=== PATIENT | female | born 1935 | race Caucasian/White ===

== ENCOUNTER → 2016-09-26 | Outpatient (CLI) | payer MEDICARE ==
[~2016-09-26] MED LIST: COUM2.5T PO; FLUTI44I INH; MEDR4PAK3 PO; OMEP20TA PO; PRAV20 PO; RANI300T PO; ULTR50TA PO; VENTAER INH
--- NOTE | 2016-10-05 10:53 | RSPPFT ---
DATE OF PROCEDURE: 09/26/16 COMMENTS: Spirometry with FVC of 1.9 predicted 2.4, FEV1 of 1.2 predicted 1.8, FEV1 FVC ratio 57% predicted 81%. Post-bronchodilator FVC increases to 2.1. RV is increased to 2.8 predicted 2.3. DLCO is 43% of predicted. IMPRESSION: On the basis of the above, patient has an obstructive lung defect with a mild response to acutely inhaled bronchodilator. DLCO is decreased.
== END ==
LOC: HRSP 13:16
PROVIDERS: ATTEND Internal Medicine Pulmonary Disease
DX: J44.9 Chronic obstructive pulmonary disease, unspecified (principal)
CPT/HCPCS: 94060; 94620; 94726; 94729

== ENCOUNTER 2017-04-06 16:28 | Emergency (ER) | payer MEDICARE ==
[~2017-04-06] VITALS: Ht 160 cm; Wt 63.5 kg
[2017-04-06 16:29] VITALS: BP 127/58; PULSE 86; RESP 18; TEMP 98.8; O2SAT 97
[2017-04-06 17:29] LABS: AUTOMATED NEUTROPHIL # 5.9 TH/MM3 (1.8-7.7); BASOPHIL % 0.5 % (0.0-2.0); EOSINOPHIL # 0.1 TH/MM3 (0-0.4); EOSINOPHIL % 0.9 % (0.0-4.0); HEMATOCRIT 40.3 % (35.0-46.0); LYMPH % 15.6 % (9.0-44.0); LYMPHOCYTE # 1.2 TH/MM3 (1.0-4.8); MEAN CELL VOLUME 92.5 FL (80.0-100.0); MEAN CORPUSCULAR HEMOGLOBIN 32.2 PG (27.0-34.0); MEAN CORPUSCULAR HGB CONC 34.8 % (32.0-36.0); MEAN PLATELET VOLUME 7.3 FL (7.0-11.0); MONO % 9.3 % (0.0-8.0); MONOCYTE # 0.7 TH/MM3 (0-0.9); NEUT % 73.7 % (16.0-70.0); PLATELET COUNT 220 TH/MM3 (150-450); RED BLOOD COUNT 4.36 MIL/MM3 (4.00-5.30); RED CELL DISTRIBUTION WIDTH 13.5 % (11.6-17.2); WHITE BLOOD COUNT 7.9 TH/MM3 (4.0-11.0)
--- NOTE | 2017-04-06 17:35 | RADRPT ---
EXAM DATE/TIME: 04/06/2017 17:05 [place] COMPARISON: No previous studies available for comparison. INDICATIONS : Chest pain. MEDICAL HISTORY : Chronic obstructive pulmonary disease. Emphysema. Afib. Diabetes. SURGICAL HISTORY : Right carotid endarterectomy. ENCOUNTER: Initial ACUITY: 1 week PAIN SCORE: 2/10 LOCATION: Left chest FINDINGS: PA and lateral views of the chest was obtained and demonstrate a focal oval area of consolidative opa city projected along the right minor fissure best seen on the PA study. This measures up to approxima tely 3.2 x 1.9 cm in diameter. There is associated thickening of the lateral minor fissure which appe ars retracted cephalad. The left lung is clear. The heart and mediastinal structures are within don l limits. There is no definite effusion. CONCLUSION: Focal oval consolidative opacity projected over the right upper lobe. The differentia l diagnosis includes pneumonia. A true pulmonary mass is less likely. Short term followup is recommen ded after treatment. Mark Lehman MD on April 06, 2017 at 17:30 Board Certified Radiologist. This report was verified electronically.
[2017-04-06 17:45] LABS: INTERNATIONAL NORMALIZED RATIO 1.5 RATIO; PROTHROMBIN TIME - PATIENT 15.1 SEC (9.8-11.6)
[2017-04-06 17:47] LABS: BICARBONATE 30.3 MEQ/L (21.0-32.0); BLOOD UREA NITROGEN 23 MG/DL (7-18); CALCIUM 8.8 MG/DL (8.5-10.1); CHLORIDE 99 MEQ/L (98-107); CREATININE 1.12 MG/DL (0.50-1.00); GLOMERULAR FILTRATION RATE 47 ML/MIN (>89); GLUCOSE,RANDOM 75 MG/DL (74-106); MAGNESIUM 2.3 MG/DL (1.5-2.5); SODIUM (NA) 136 MEQ/L (136-145)
[2017-04-06 17:51] LABS: TROPONIN I LESS THAN 0.02 NG/ML (0.02-0.05)
--- NOTE | 2017-04-06 18:16 | PD ---
HPI Chief Complaint: Chest Pain Time Seen by Provider: 18:15 Travel History International Travel<30 days: No Contact w/Intl Traveler<30days: No Traveled to known affect area: No History of Present Illness HPI 81-year-old female patient of Dr. Santizo the gasket maker, presents the emergency department with chest pain over the past couple of days. Patient is scheduled for a catheterization with Dr. Santizo next Monday. She was seen by Dr. Santizo nurse in his office, and recommended to come here for getting "checked out." Patient now feels she is improved. She denies fever, chills, significant shortness of breath, nausea, vomiting, or abdominal pain. Labs previous he ordered in triage showed no acute process. EKG is stable. Chest x- ray was ordered as well. She has multiple allergies. Please see list. PFSH Past Medical History Hx Anticoagulant Therapy: Yes (warfarin) Heart Rhythm Problems: Yes ("IRREGULAR RHYTHMS") Cancer: No Cardiovascular Problems: Yes (RIGHT C.E.A.) High Cholesterol: Yes COPD: Yes Diabetes: No (pre diabetic) Gastrointestinal Disorders: Yes (gerd) Glaucoma: No Genitourinary: No Hepatitis: No Hiatal Hernia: No Hypertension: Yes Implanted Vascular Access Dvce: No Psychiatric: No Respiratory: No Thyroid Disease: Yes (HYPOTHYROID) Past Surgical History Appendectomy: Yes (AGE 14) Cholecystectomy: Yes (AGE 23) Hysterectomy: Yes (AGE 57) Other Surgery: Yes (RIGHT CAROTID ENDARTECTOMY 2001) Social History Alcohol Use: No Tobacco Use: No (QUIT 1998- FORMER 1PPD X 40 YEARS) Substance Use: No Allergies-Medications (Allergen,Severity, Reaction): Coded Allergies: amoxicillin (Unverified Allergy, Mild, shortness of breath, 11/08/16) diatrizoate meglumine (Unverified Allergy, Mild, hives, 11/08/16) gadobenic acid (Unverified Allergy, Mild, hives, 11/08/16) gadodiamide (Unverified Allergy, Mild, hives, 11/08/16) gadoteridol (Unverified Allergy, Mild, hives, 11/08/16) iodixanol (Unverified Allergy, Mild, hives, 11/08/16) iohexol (Unverified Allergy, Mild, hives, 11/08/16) Reported Meds & Prescriptions Reported Meds & Active Scripts Active Azithromycin 250 Mg Tab 250 Mg PO DIRECTED Take 2 tabs (500 mg) on day 1 then 1 tab daily x 4 days. Reported Coumadin (Warfarin) 5 Mg Tab 5 Mg PO DAILY Coumadin (Warfarin) 2.5 Mg Tab 2.5 Mg PO DAILY Flovent Hfa (Fluticasone Propionate) 44 Mcg/Act Aer 1 Puff INH BID Ventolin Hfa (Albuterol Sulfate) 18 Gm Aero 0 INH UNKNOWN DOSE Ranitidine 300 mg (Ranitidine HCl) 300 Mg Tab 1 Tab PO DAILY Pravastatin Sodium 20 Mg Tab 20 Mg PO DAILY Review of Systems Except as stated in HPI: all other systems reviewed are Neg General / Constitutional: No: Fever, Chills Eyes: No: Visual changes HENT: No: Headaches Cardiovascular: Positive: Chest Pain or Discomfort, No: Palpitations, Irregular Rhythm, Tachycardia Respiratory: Positive: Cough, No: Shortness of Breath, Wheezing, Orthopnea, Night Sweats, Pleuritic Pain Gastrointestinal: No: Abdominal Pain Genitourinary: No: Dysuria Musculoskeletal: No: Pain Skin: No Rash Neurologic: No: Weakness Psychiatric: No: Depression Endocrine: No: Polydipsia Hematologic/Lymphatic: No: Easy Bruising Physical Exam Narrative GENERAL: Patient alert and oriented in no acute distress. SKIN: Warm and dry. Color. Normal turgor. HEAD: Atraumatic. Normocephalic. EYES: Pupils equal and round. No scleral icterus. No injection or drainage. ENT: No nasal bleeding or discharge. Mucous membranes pink and moist. TMs are clear bilaterally. Pharynx is unremarkable. No sinus tenderness. NECK: Trachea midline. No JVD. Supple nontender without pain. CARDIOVASCULAR: Regular rate and rhythm. Murmurs gallops or rubs. RESPIRATORY: No accessory muscle use. Clear to auscultation. Breath sounds equal bilaterally. GASTROINTESTINAL: Abdomen soft, non-tender, nondistended. Hepatic and splenic margins not palpable. MUSCULOSKELETAL: Extremities without clubbing, cyanosis, or edema. No obvious deformities. NEUROLOGICAL: Awake and alert. No obvious cranial nerve deficits. Motor grossly within normal limits. Five out of 5 muscle strength in the arms and legs. Normal speech. PSYCHIATRIC: Appropriate mood and affect; insight and judgment normal. Data Data Last Documented VS Vital Signs Date Time Temp Pulse Resp B/P (MAP) Pulse Ox O2 Delivery O2 Flow Rate FiO2 04/06/17 18:34 96 Room Air 04/06/17 16:29 98.8 86 18 127/58 (81) Orders Orders Electrocardiogram (04/06/17 16:35) Basic Metabolic Panel (Bmp) (04/06/17 16:35) B-Type Natriuretic Peptide (04/06/17 16:35) Ckmb (Isoenzyme) Profile (04/06/17 16:35) Complete Blood Count With Diff (04/06/17 16:35) Magnesium (Mg) (04/06/17 16:35) Prothrombin Time / Inr (Pt) (04/06/17 16:35) Act Partial Throm Time (Ptt) (04/06/17 16:35) Troponin I (04/06/17 16:35) Chest, Pa & Lat (04/06/17 16:35) Labs Laboratory Tests Test 04/06/17 16:48 White Blood Count 7.9 TH/MM3 Red Blood Count 4.36 MIL/MM3 Hemoglobin 14.0 GM/DL Hematocrit 40.3 % Mean Corpuscular Volume 92.5 FL Mean Corpuscular Hemoglobin 32.2 PG Mean Corpuscular Hemoglobin Concent 34.8 % Red Cell Distribution Width 13.5 % Platelet Count 220 TH/MM3 Mean Platelet Volume 7.3 FL Neutrophils (%) (Auto) 73.7 % Lymphocytes (%) (Auto) 15.6 % Monocytes (%) (Auto) 9.3 % Eosinophils (%) (Auto) 0.9 % Basophils (%) (Auto) 0.5 % Neutrophils # (Auto) 5.9 TH/MM3 Lymphocytes # (Auto) 1.2 TH/MM3 Monocytes # (Auto) 0.7 TH/MM3 Eosinophils # (Auto) 0.1 TH/MM3 Basophils # (Auto) 0.0 TH/MM3 CBC Comment DIFF FINAL Differential Comment Prothrombin Time 15.1 SEC Prothromb Time International Ratio 1.5 RATIO Activated Partial Thromboplast Time 31.1 SEC Blood Urea Nitrogen 23 MG/DL Creatinine 1.12 MG/DL Random Glucose 75 MG/DL Calcium Level 8.8 MG/DL Magnesium Level 2.3 MG/DL Sodium Level 136 MEQ/L Potassium Level 3.6 MEQ/L Chloride Level 99 MEQ/L Carbon Dioxide Level 30.3 MEQ/L Anion Gap 7 MEQ/L Estimat Glomerular Filtration Rate 47 ML/MIN Total Creatine Kinase 52 U/L Troponin I LESS THAN 0.02 NG/ML B-Type Natriuretic Peptide 279 PG/ML MDM Medical Decision Making Medical Screen Exam Complete: Yes Emergency Medical Condition: Yes Medical Record Reviewed: Yes Differential Diagnosis Cough. Shortness of breath. Cardiac syndrome. Pneumonia. Influenza. Narrative Course Patient appears medically stable at time of exam. Labs are unremarkable. Chest x-ray shows question of changes, but patient has history of lung cancer treated at [place]. I have no previous x-ray to compare to. EKG is unremarkable as well. Call was placed to Dr. Santizo the patient's gasket maker and the findings are discussed. Patient will be treated empirically with azithromycin Dosepak. Patient is felt stable for discharge with this treatment plan. Patient should return the emergency Department with worsening symptoms as needed. Diagnosis Primary Impression: Cough in adult patient Additional Impression: Bronchitis Referrals: Chevy Santizo MD Patient Instructions: Acute Bronchitis (ED), General Instructions Additional Instructions: Patient appears medically stable at time of exam. Labs are unremarkable. Chest x-ray shows question of changes, but patient has history of lung cancer treated at [place]. I have no previous x-ray to compare to. EKG is unremarkable as well. Call was placed to Dr. Santizo the patient's gasket maker and the findings are discussed. Patient will be treated empirically with azithromycin Dosepak. Patient is felt stable for discharge with this treatment plan. Patient should return the emergency Department with worsening symptoms as needed. Med/Other Pt SpecificInfo: Prescription(s) given Scripts Azithromycin (Azithromycin) 250 Mg Tab 250 MG PO DIRECTED for Infection, #6 TAB 0 Refills Take 2 tabs (500 mg) on day 1 then 1 tab daily x 4 days. Prov: Dale Padron MD 04/06/17 Disposition: 01 DISCHARGE HOME Condition: Stable Mark Cifuentes Apr 06, 2017 18:16
[2017-04-06] MEDS ORDERED: COUM2.5T PO (18:41)
[2017-04-06] MEDS ORDERED: COUM5TAB PO (18:41)
[2017-04-06] MEDS ORDERED: AZIT250T3 PO (18:58)
--- NOTE | 2017-04-07 14:53 | EKG ---
Date Performed: 04/06/2017 Time Performed: 16:42:10 PTAGE: 81 years EKG: ATRIAL FIBRILLATION Now consider INFERIOR MYOCARDIAL INFARCTION - age indeterminate ABNORMA L RHYTHM ECG PREVIOUS TRACING : 09/06/2012 12.37 DOCTOR: Erwin Tinsley Interpretating Date/Time 04/07/2017 14:52:56
== END 2017-04-06 19:30 | disposition home or self-care (01) ==
LOC: NEPC 16:28
DX: J20.9 Acute bronchitis, unspecified (principal); R94.31 Abnormal electrocardiogram [ECG] [EKG]; E03.9 Hypothyroidism, unspecified; I10 Essential (primary) hypertension; E78.00 Pure hypercholesterolemia, unspecified; E11.9 Type 2 diabetes mellitus without complications; I48.91 Unspecified atrial fibrillation; Z87.891 Personal history of nicotine dependence; Z85.118 Personal history of other malignant neoplasm of bronchus and lung
CPT/HCPCS: 71046; 80048; 82550; 83735; 83880; 84484; 85025; 85610; 85730; 93005; 99285

== ENCOUNTER 2017-04-17 06:54 | Day surgery (SDC) | payer MEDICARE ==
[~2017-04-17] VITALS: Ht 160 cm; Wt 62.2 kg
[~2017-04-17 06:54] MED LIST changes: +AZIT250T3 PO; +COUM5TAB PO
[2017-04-17] MEDS ORDERED: IOHEXOL 350 MG/ML 100 ML BTL (for Cath Lab) OTHER ONE (06:55)
[2017-04-17 07:43] VITALS: BP 141/71; PULSE 90; RESP 18; TEMP 97.6; O2SAT 92
[2017-04-17] MEDS ORDERED: NS 1000P @30 MLS/HR (KVO) IV SCH (08:00)
[2017-04-17] MEDS ORDERED: VENTAER INH (08:01)
[2017-04-17] MEDS ORDERED: RANI150T PO (08:01)
[2017-04-17] MEDS ORDERED: UBID200C3 PO (08:01)
[2017-04-17] MEDS ORDERED: POTA10CA PO (08:01)
[2017-04-17] MEDS ORDERED: PRED20 PO (08:01)
[2017-04-17] MEDS ORDERED: CART120C PO (08:01)
[2017-04-17] MEDS ORDERED: PRAV20TA2 PO (08:01)
[2017-04-17] MEDS ORDERED: MAGN500T2 PO (08:01)
[2017-04-17] MEDS ORDERED: VITACAP7 PO (08:01)
[2017-04-17] MEDS ORDERED: FLUTI220I INH (08:01)
[2017-04-17] MEDS ORDERED: FURO40TA PO (08:01)
[2017-04-17] MEDS ORDERED: MIDAZOLAM HCL 2 MG/2 ML VIAL ONE (08:32)
[2017-04-17] MEDS ORDERED: diphenhydrAMINE HCL 50 MG/ML VIAL ONE (08:37)
--- NOTE | 2017-04-17 09:20 | CATHPROC ---
[employer] HIS Report Study Information Study Number Admission Scheduled Start Study Start [id number] Apr 17 2017 6:54AM 04/17/2017 Apr 17 2017 8:07AM [place] [facility] Cardiac Catheterization Admit Source Facility Department Other [facility] - Manager Client Physician and Clinical Staff Initial Chevy Ferrari Drier Operator Head Jo Byrd BSN Recorder Russell Porras,RT(R) Scrub Ermelinda Raymundo,RT(R) Procedures Performed Procedure Location (Site) Vessel Name Angiogram LV LV Ventricle Coronary Angiograms LCA Left Coronary Coronary Angiograms RCA Right Coronary Equipment Time Interactive Multimedia Designer Description Size Mfg Part Number Used/Scraped [id number] 08:50 [employer] SWAN ROSALBA CATHETER FR 7 Used *[id number] TRANSDUCER, TRUWAVE [id number] 08:13 [employer] * Used W/STOCKCOCK *[id number] *[id number] 534-621T *[id number] 534-650S *[id number] 08:13 [employer] PACK, CCL CUSTOM * Used *[id number] 08:13 [email or web address] PACER PEN, SKIN DUAL W/ RULER * Used *[id number] 08:13 [employer] MEDICAL SHEATH, FR6.5 PRELUDE 11CM FR 6.5 038ACT Used *[id number] 08:44 [employer] MEDICAL SHEATH, FR7.5 PRELUDE 11CM FR 7.5 11CM Used [id number] 08:13 [employer] MEDICAL WIRE, 3MMJ .035 180CM 180CM Used *[id number] 08:13 [employer] MANIFOLD, 4 PORT * Used *[id number] 08:13 [employer] OMNIPAQUE, 350 MG, 100ML 100ML [id number] Used 08:48 [employer] OMNIPAQUE, 350 MG, 50ML 50ML [id number] Used [id number] 08:13 [employer] MEDICAL BLANKET,WARM AIR CCL * Used *[id number] History: Risk Factors Family History of Hypertension Dyslipidemia Previous NV Previous Heart Failure Premature CAD Yes Yes No No Yes Prior Valve Prior PCI Prior CABG Surgery No No No Cerebrovascular Peripheral Artery Chronic Lung On Dialysis Diabetes Disease Disease Disease No No Yes Yes No History: Other Current Smoker Method Quit Packs a Day Years Used Pack Years No Cigarettes 19 Years Ago 1 40 40 Labs Hgb (g/dl) Hct (%) WBC (l/cumm) Platelets (thousands) 11.60-17.00 35.00-51.00 4.00-11.00 150.00-450.00 13.7 41.5 8.7 215 Glucose (mg/dl) BUN (mg/dl) Creatinine (mg/dl) BUN:Creatinine (1:x) 74.00-106.00 7.00-18.00 0.50-1.30 10.00-20.00 116 21 1.1 19.1 Na (meq/l) K (meq/l) 136.00-145.00 3.50-5.10 137 4.1 INR (PTT:PT) 0.90-1.10 1.3 CPK-MB (ng/ML) 0.50-3.60 Not Drawn Medication Medication Total Dose (Bolus/Oral) Medication Total Dosage/Unit 1% XYLOCAINE 20 mL BENADRYL 25 mg VERSED 1 mg Medications (Bolus/Oral) Medication Time Given Dosage/Unit Administered By Reason 1% XYLOCAINE 04/17/2017 8:37:58 AM 20 mL Chevy Santizo 20 mL 1% XYLOCAINE given in lab by Chevy Santizo in Right Groin via Subcutaneous. Ordered by Chevy Coleman ms. BENADRYL 04/17/2017 8:38:39 AM 25 mg Jo Byrd 25 mg BENADRYL given in lab by Jo Byrd BSN in Left Antecubital via Peripheral IV. Ordere d by Chevy Santizo. VERSED 04/17/2017 8:47:00 AM 1 mg Oscar Byrdanda 1 mg VERSED given in lab by Jo Byrd BSN in Left Antecubital via Peripheral IV. Ordered b y Chevy Santizo. Medication (Drip) Medication Time Given Dosage/Unit Concentration/Unit Diluent (ml) Solution IV Solutions 04/17/2017 8:27:44 AM 50 mL (IV) 500 NaCl .9 Patient arrived on IV Solutions given by Chevy Santizo in Left Antecubital via Peripheral IV. Pump/ Drip Flow using NaCl .9. Initial Case Assessment Cardiovascular HR Rhythm NIBP Chest Pain 91 A-fib 101/47 0 Edema Present Skin color Skin None Normal Warm Dry Circulatory - Right Pulses Dorsalis Pedis Femoral 3 3 Scale (0,1,2,3,4,d) Circulatory - Left Pulses Dorsalis Pedis Femoral 2 2 Scale (0,1,2,3,4,d) Neurological State Oriented to time-place- Alert Moves all extremities person Respiration - General Respiration Rate SpO2 (%) (B/min) 18 96 Final Case Assessment Cardiovascular HR Rhythm NIBP 96 A-fib 113/72 Edema Present Skin color Skin None Normal Warm Dry Circulatory - Right Pulses Dorsalis Pedis Femoral 3 3 Scale (0,1,2,3,4,d) Circulatory - Left Pulses Dorsalis Pedis Femoral 2 2 Scale (0,1,2,3,4,d) Neurological State Oriented to time-place- Alert Moves all extremities person Respiration - General Respiration Rate SpO2 (%) O2 (lpm) (B/min) 18 97 2 Chronological Log Time Study Chronological Log 8:27:06 Patient arrived via Bed. 8:27:12 Patient Name, D.O.B, / Armband Verified By R.N. 8:27:13 Consent signed by the physician and the patient and verified by the Manager Client staff. 8:27:28 Patient has been NPO for More than 6Hrs. 8:27:29 Skin Breakdown- none per patient 8:27:41 Leanne Prominences Protected 8:27:43 A # 20 IV was noted in the Antecubital (left). Grade = 0 Patient arrived on IV Solutions given by Chevy Santizo in Left Antecubital via Peripheral IV. Pump/Drip Flow using NaCl 8:27:44 .9. 8:27:48 History and physical on the chart or being dictated. Assessment: Initial Case, HR=91 BPM, Rhythm=A-fib, ZBPQ=062/47 mmhg, Chest Pain=0, Edema=None, Color=Normal, Skin = Warm, Dry Right Pulses: North Ped=3, Femoral=3 8:27:49 Left Pulses: North Ped=2, Femoral=2 Neurological: State=Alert, Ox3, HERNANDEZ Respiration: Resp=18 B/min, SpO2=96 % 8:28:00 MD arrived. Vitals capture started with the following parameters, Patient=Adult, Interval=5 min, Initial Pr rvahmo=120 mmHg, 8:29:46 Deflation Rate=5 mmHg, Cuff placed on Left Arm 8:30:30 OA=154 bpm, WULJ=966/47 mmhg, SpO2=96.0 %, Resp=21 B/min, Cooper=2 8:33:45 Bilateral groins prepped with 2% chlorhexidine, and draped after a 3 minute waiting time. 8:35:48 FS=994 bpm, QHER=156/76 mmhg, SpO2=96.0 %, Resp=27 B/min, Cooper=2 Time Out. Correct patient, correct procedure, correct physician, power not loaded with contrast with surgical team 8:36:02 present. Time Out Concurred by MD and individual staff in procedure. 8:36:11 Presedation re-assessment performed by Manager Client RN. 8:36:13 Case Start 8:36:14 Verbal Stimulation=2 Physical Stimulation=2 Airway=2 Respiration=2 TOTAL=8. (0=absent, 1=grace ited, 2=present) 8:37:58 20 mL 1% XYLOCAINE given in lab by Chevy Santizo in Right Groin via Subcutaneous. Ordered by Chevy Santizo. 8:38:12 Reference ECG taken 25 mg BENADRYL given in lab by Jo Byrd BSN in Left Antecubital via Peripheral IV. O rdered by Sukhdev, 8:38:39 Chevy. 8:39:48 Pressure channel 1 zeroed. 8:40:24 XU=252 bpm, ILTU=913/80 mmhg, SpO2=97.0 %, Resp=16 B/min, Cooper=2 8:42:06 Access site was Right Femoral Artery. 8:42:23 A SHEATH, FR6.5 PRELUDE 11CM FR 6.5 was advanced into the Fem Art (right) using the Percutan eous technique. 8:45:25 YP=207 bpm, WQUR=095/84 mmhg, SpO2=96.0 %, Resp=13 B/min, Cooper=2 1 mg VERSED given in lab by Jo Byrd BSN in Left Antecubital via Peripheral IV. Orde red by Sukhdev, 8:47:00 Chevy. 8:47:50 Access site was Right Femoral Vein. A SHEATH, FR7.5 PRELUDE 11CM FR 7.5 11CM was advanced into the Fem Vein (right) using the Percut aneous 8:48:13 technique. 8:48:40 A SWAN ROSALBA CATHETER FR 7 was inserted via Fem Vein (right) 8:50:22 HQ=743 bpm, XDCV=712/72 mmhg, SpO2=90.0 %, Resp=17 B/min, Cooper=2 Recorded Pressure: RA, OD=907, Condition=Condition 1 8:50:24 (Right Atrium) RA 118 Recorded Pressure: RV, LZ=708, Condition=Condition 1 8:51:02 (Right Ventricle) RV 65/1/4 Recorded Pressure: PCW, MU=606, Condition=Condition 1 8:53:11 (Pulmonary Capillary Wedge) PCW 32/31/26 Recorded Pressure: MPA, KX=414, Condition=Condition 1 8:53:26 (Main Pulmonary Artery) MPA 71/27/46 A JL 4.0 INFINITI CATHETER FR 6 was advanced over a wire. OMNIPAQUE, 350 MG, 100ML 100ML was use d for 8:54:38 injections. 8:55:21 SB=619 bpm, DNJG=095/74 mmhg, SpO2=90.0 %, Resp=19 B/min, Cooper=2 Recorded Pressure: Ao, HR=82, Condition=Condition 1 8:56:52 (Aorta) Ao 151/54/89 8:57:09 The LCA was injected and visualized at various angles. OMNIPAQUE, 350 MG, 100ML 100ML used. 9:00:18 HR=89 bpm, TGCH=578/71 mmhg, SpO2=94.0 %, Resp=14 B/min, Cooper=2 9:01:36 Catheter was removed A JR 4.0 INFINITI CATHETER FR 6 was advanced over a wire. OMNIPAQUE, 350 MG, 100ML 100ML was use d for 9:03:05 injections. 9:03:21 The RCA was injected and visualized at various angles. OMNIPAQUE, 350 MG, 100ML 100ML used. 9:04:38 Catheter was removed A PIGTAIL STR INFINITI CATHETER FR 6 was advanced over a wire. OMNIPAQUE, 350 MG, 100ML 100ML wa s used for 9:04:43 injections. 9:05:23 VQ=058 bpm, SXHM=925/68 mmhg, SpO2=95.0 %, Resp=16 B/min, Cooper=2 Recorded Pressure: LV, VW=707, Condition=Condition 1 9:07:53 (Left Ventricle) LV 156/5/11 9:09:24 [place] Catheter was removed 9:09:39 The LV was injected at 12 cc/sec for a total of 30. OMNIPAQUE, 350 MG, 100ML 100ML used. 9:10:22 HZ=188 bpm, WVSL=733/64 mmhg, SpO2=96.0 %, Resp=14 B/min, Cooper=2 Recorded Pressure: LV, Ao, HR=92, Condition=Condition 1 9:11:04 (Left Ventricle) LV 143/5/9, (Aorta) Ao 129/49/80 9:11:33 Catheter was removed 9:13:03 Case End 9:13:35 No case complications noted. 9:13:37 Cine recording checked. 9:13:45 Bedside Report will be given. 9:13:56 Contrast Scanned 9:14:10 A Left and Right Heart Cath was performed. Assessment: Final Case, HR=96 BPM, Rhythm=A-fib, HUEU=076/72 mmhg, Edema=None, Color=Normal, S kin = Warm, Dry Right Pulses: North Ped=3, Femoral=3 9:14:38 Left Pulses: North Ped=2, Femoral=2 Neurological: State=Alert, Ox3, HERNANDEZ Respiration: Resp=18 B/min, SpO2=97 %, O2=2 lpm 9:15:22 HR=87 bpm, TLWV=986/72 mmhg, SpO2=98.0 %, Resp=16 B/min 9:18:00 Patient moved to [facility] End Study - Contrast Media Used In Study Contrast Total Opened (mL) Total Used (mL) Total Wasted (mL) Omnipaque 85 85 0 End Study - Maximum Contrast Load Max Contrast Load (mL) 282.6 End Study - Radiation Exposure Fluoro Time (minutes) 6.1 End Study - Patient Disposition Complications Transferred To Interventional Outcome No Outpatient Bed No attempt made
[2017-04-17] MEDS ORDERED: BACITRACIN OINT 0.9 GM PKT TOP ONE (09:30)
[2017-04-17] MEDS ORDERED: SODIUM CHLOR 0.9% 250 ML INJ 250 ML IV PRN (09:30)
[2017-04-17] MEDS ORDERED: MISC INFORMATION XX ONE (09:30)
[2017-04-17] MEDS ORDERED: LORazepam 2 MG/ML VIAL IV PUSH PRN (09:30)
[2017-04-17] MEDS ORDERED: ATROPINE SULFATE 1 MG/ML VIAL IV PUSH PRN (09:30)
[2017-04-17] MEDS ORDERED: LIDOCAINE HCL 1% 50 ML VIAL INFIL PRN (09:30)
[2017-04-17] MEDS ORDERED: ONDANSETRON HCL 4 MG/2 ML VIAL IV PUSH PRN (09:30)
--- NOTE | 2017-04-17 10:53 | MA ---
cc: CHEVY SANTIZO MD DATE 04/17/2017 PROCEDURE Cardiac catheterization. PROCEDURAL STATEMENTS The patient was prepped and draped in the usual fashion. A 6 sheath was inserted percutaneously into the right femoral artery under local anesthesia. A second 6 sheath was inserted percutaneously into the right femoral artery. A right heart cath was done with a flow-directed catheter with pressures measured. Left heart catheterization was done with Kim preformed catheters. A left ventriculogram was done with a pigtail catheter. RESULTS Right atrial pressure 11. Right ventricular pressure 65/1. Pulmonary artery pressure 70/27 with a wedge pressure of 26. Left ventricular pressure 156/5. Aortic pressure 151/54. No gradient was present across the aortic valve. There appeared to be a 20 mm gradient across the mitral valve. LEFT VENTRICULOGRAPHY All areas of the left ventricle contracted normally. Left ventricular ejection fraction was estimated at 60%. CORONARY ARTERIOGRAPHY The left main coronary demonstrated a 30% stenosis in its proximal portion. There were some mild luminal irregularities noted in the LAD but no significant stenoses were seen. Similarly no significant stenoses were seen in the left circumflex system. The right coronary was anatomically dominant and no significant stenoses were noted. CONCLUSIONS The patient demonstrates evidence for severe mitral stenosis with preserved left ventricular ejection fraction. Moderate pulmonary hypertension is also present. He will be referred for mitral valve replacement. Chevy Santizo MD DLW/BT /9:25 AM /10:42 AM
--- NOTE | 2017-04-17 11:42 | PD.CONS ---
History of Present Illness Service CT Surgery Consult Requested By Dr. Santizo Reason for Consult Symptomatic mitral stenosis Chronic atrial fibrillation Primary Care Physician Chevy Santizo MD Diagnoses: (1) Mitral stenosis (2) Pulmonary hypertension (3) Dyspnea History of Present Illness 81 y/o female with multiple medical problems including PVD, COPD, HTN, lung cancer, remote tobacco abuse, presents with exertional dyspnea. She reports lung cancer of the right upper lobe which was treated with radiation. She reports being active and independent until ~ 3 months ago when she had worsening SOB with activity. She was evaluated by Dr. Santizo and found to have severe MS with a ~20 mmHg gradient and PA pressures in the 60s. She also c/o intermittent claudication in both legs and has had PCI with stent placement in the left iliac artery in 2013. She is being evaluated for MVR. Review of Systems Constitutional: COMPLAINS OF: Fatigue, DENIES: Diaphoretic episodes, Fever, Weight gain, Weight loss, Chills, Dizziness, Change in appetite, Night Sweats Endocrine: DENIES: Abnorml menstrual pattern, Heat/cold intolerance, Polydipsia , Polyuria, Polyphagia Eyes: DENIES: Blurred vision, Diplopia, Eye inflammation, Eye pain, Vision loss , Photosensitivity, Double Vision Ears, nose, mouth, throat: DENIES: Tinnitus, Hearing loss, Vertigo, Nasal discharge, Oral lesions, Throat pain, Hoarseness, Ear Pain, Running Nose, Epistaxis, Sinus Pain, Toothache, Odynophagia Respiratory: COMPLAINS OF: Cough, DENIES: Apneas, Snoring, Wheezing, Hemoptysis , Sputum production, Shortness of breath Cardiovascular: COMPLAINS OF: Dyspnea on Exertion, Claudication, DENIES: Chest pain, Palpitations, Syncope, PND, Lower Extremity Edema, Orthopnea Gastrointestinal: DENIES: Abdominal pain, Black stools, Bloody stools, Constipation, Diarrhea, Nausea, Vomiting, Difficulty Swallowing, Anorexia Genitourinary: DENIES: Abnormal vaginal bleeding, Dysmenorrhea, Dyspareunia, Sexual dysfunction, Urinary frequency, Urinary incontinence, Urgency, Hematuria , Dysuria, Nocturia, Vaginal discharge Musculoskeletal: DENIES: Joint pain, Muscle aches, Stiffness, Joint Swelling, Back pain, Neck pain Integumentary: DENIES: Abnormal pigmentation, Pruritus, Rash, Nail changes, Breast masses, Breast skin changes, Nipple discharge Hematologic/lymphatic: DENIES: Bruising, Lymphadenopathy Immunologic/allergic: DENIES: Eczema, Urticaria Neurologic: DENIES: Abnormal gait, Headache, Localized weakness, Paresthesias, Seizures, Speech Problems, Tremor, Poor Balance Psychiatric: DENIES: Anxiety, Confusion, Mood changes, Depression, Hallucinations, Agitation, Suicidal Ideation, Homicidal Ideation, Delusions Past Family Social History Allergies: Coded Allergies: amoxicillin (Unverified Allergy, Mild, shortness of breath, 04/17/17) diatrizoate meglumine (Unverified Allergy, Mild, hives, 11/08/16) gadobenic acid (Unverified Allergy, Mild, hives, 11/08/16) gadodiamide (Unverified Allergy, Mild, hives, 11/08/16) gadoteridol (Unverified Allergy, Mild, hives, 11/08/16) iodixanol (Unverified Allergy, Mild, hives, 04/17/17) iohexol (Unverified Allergy, Mild, hives, 04/17/17) alendronate sodium (Verified Allergy, Unknown, 04/17/17) atenolol (Verified Allergy, Unknown, 04/17/17) propofol (Verified Allergy, Unknown, 04/17/17) rosuvastatin (Verified Allergy, Unknown, 04/17/17) simvastatin (Verified Allergy, Unknown, 04/17/17) Past Medical History PVD s/p PCI on L in 2012 CAD COPD CVD HTN Hyperlipidemia Atrial fibrillation Former tobacco abuse Lung cancer - right upper lobe Past Surgical History appendectomy right CEA - 1998 Cholecystectomy Colonoscopy/polyp removal EGD - gastric polyp removed ERCP - Balloon dilation of ampulla Tonsillectomy [facility] - 1989 ? expl lap for bowel obstruction 1961 Reported Medications Cartia XT Co Q Flovent Furosemide Magnesium Intermittent steroid use Kcl Pravastatin Zantac Vit B Ventolin Coumadin Family History unremarkable Social History Denies current ETOH or tobacco abuse Physical Exam Vital Signs Vital Signs Date Time Temp Pulse Resp B/P (MAP) Pulse Ox O2 Delivery O2 Flow Rate FiO2 04/17/17 09:52 92 Room Air 04/17/17 07:43 97.6 90 18 141/71 (94) 92 Physical Exam GENERAL: This is a well-nourished, well-developed patient, in no apparent distress. SKIN: No rashes, ecchymoses or lesions. Cool and dry. HEAD: Atraumatic. Normocephalic. No temporal or scalp tenderness. EYES: Pupils equal round and reactive. Extraocular motions intact. No scleral icterus. No injection or drainage. ENT: Nose without bleeding, purulent drainage or septal hematoma. Throat without erythema, tonsillar hypertrophy or exudate. Uvula midline. Airway patent. NECK: Trachea midline. No JVD or lymphadenopathy. Supple, nontender, no meningeal signs. CARDIOVASCULAR: Irregular rate and rhythm with 2/4 diastolic blowing murmur at the apex. RESPIRATORY: Clear to auscultation. Breath sounds equal bilaterally. No wheezes , rales, or rhonchi. GASTROINTESTINAL: Abdomen soft, non-tender, nondistended. No hepato-splenomegaly , or palpable masses. No guarding. MUSCULOSKELETAL: Extremities without clubbing, cyanosis, or edema. Diminished femoral pulses bilaterally. No joint tenderness, effusion, or edema noted. No calf tenderness. Negative Homans sign bilaterally. NEUROLOGICAL: Awake and alert. Cranial nerves II through XII intact. Motor and sensory grossly within normal limits. Five out of 5 muscle strength in all muscle groups. Normal speech. Imaging [facility] done today shows ~30% left main stenosis, otherwise, non-obstructive CAD. No significant . Assessment and Plan Problem List: (1) Pulmonary hypertension ICD Codes: I27.20 - Pulmonary hypertension, unspecified (2) Dyspnea ICD Codes: R06.00 - Dyspnea, unspecified (3) Mitral stenosis ICD Codes: I05.0 - Rheumatic mitral stenosis Assessment and Plan 81 y/o female presents with severe MS and exertional dyspnea. MVR is recommended. A tissue valve would be the valve of choice. She is not a candidate for minimally invasive approach due to previous radiation to the right chest and significant PVD. I discussed the risks and benefits of MVR with her and she agrees to proceed. STS risk is as follows: Risk Model and Variables - STS Adult Cardiac Surgery Database Version 2.81 RISK SCORES About the STS Risk Calculator Procedure: MV Replacement Only Risk of Mortality: 10.551% Morbidity or Mortality: 43.675% Long Length of Stay: 19.542% Short Length of Stay: 6.461% Permanent Stroke: 3.246% Prolonged Ventilation: 30.707% DSW Infection: 0.321% Renal Failure: 13.978% Reoperation: 14.61% Surgery tentatively scheduled for 04/25/17 Problem Qualifiers (1) Mitral stenosis: Qualified Codes: I05.0 - Rheumatic mitral stenosis (2) Dyspnea: Qualified Codes: R06.09 - Other forms of dyspnea Radha Linda MD Apr 17, 2017 11:42
[2017-04-17] MEDS ORDERED: METOPROLOL TARTRATE 25 MG TAB PO SCH (12:00)
[2017-04-17] MEDS ORDERED: ceFAZolin 2 GM PREMIX 50 ML IV SCH (12:00)
[2017-04-17] MEDS ORDERED: CHLORHEXIDINE GLUCONATE 4% SOLN 120 ML BTL TOPICAL SCH (12:00)
[2017-04-17] MEDS ORDERED: DEXTROSE 50% IN WATER 50 ML VIAL(D50) IV PUSH PRN (12:00)
[2017-04-17] MEDS ORDERED: MUPIROCIN 2% OINT 1 APPLIC/GM SYR EACH NARE SCH (13:00)
[2017-04-17] MEDS ORDERED: CEFAZOLIN INJ 500 MG in SODIUM CHLORIDE 0.9% IRR BTL 500 ML IRRIGATION SCH (13:00)
[2017-04-17] MEDS ORDERED: INSULIN REGULAR (IV INFUSION) 100 UNITS in SODIUM CHLORIDE 0.9% INJ 99 ML IV PRN (14:00)
--- NOTE | 2017-04-17 15:01 | RADRPT ---
EXAM DATE/TIME: 04/17/2017 13:34 [facility] COMPARISON: No previous studies available for comparison. INDICATIONS : Congestive heart failure RADIATION DOSE: 7.29 CTDIvol (mGy) MEDICAL HISTORY : Peripheral vascular disease. Hypertension. Chronic obstructive pulmonary disease. Right lung cancer SURGICAL HISTORY : Hysterectomy. ENCOUNTER: Initial ACUITY: 1 day PAIN SCALE: 2/10 LOCATION: chest TECHNIQUE: Volumetric scanning of the chest was performed. Using automated exposure control and adjustment of t he mA and/or kV according to patient size, radiation dose was kept as low as reasonably achievable to obtain optimal diagnostic quality images. DICOM format image data is available electronically for r eview and comparison. Follow-up recommendations for detected pulmonary nodules are based at a minimum on nodule size and pa tient risk factors according to Fleischner Society Guidelines. FINDINGS: There is enlarged 3.6 MM mass right upper lobe and abuts the fissure with abnormal soft tissue in the right hilum. There is 8 to centimeter precarinal node evident as well. Marked atherosclerotic coronary calcifications are noted Minimal pleural thickening is seen in the left base The heart is minimally enlarged The liver and spleen are grossly free of focal defects. Extensive calcification is seen in both kidn eys. CONCLUSION: 3.6 cm right upper lobe mass abutting the fissure with abnormal soft tissue in the mediastinum, right hilum and precarinal region. These findings all suggest mediastinal involvement. Moderate coronary calcifications. David Mack MD FACR on April 17, 2017 at 14:56 Board Certified Radiologist. This report was verified electronically.
--- NOTE | 2017-04-17 15:39 | RADRPT ---
EXAM DATE/TIME: 04/17/2017 14:53 [facility] COMPARISON: No previous studies available for comparison. INDICATIONS : Stenosis. MEDICAL HISTORY : Hypercholesterolemia. Hypertension. Chronic obstructive pulmonary disease. Hiatal hernia. Diabetes. R ight lung cancer. Hypothyroidism. SURGICAL HISTORY : Carotid endarterectomy. Appendectomy. Hysterectomy. Cholecystectomy. Radiation therapy. ENCOUNTER: Initial ACUITY: 1 day PAIN SCORE: 1/10 LOCATION: Bilateral neck PEAK SYSTOLIC VELOCITIES (cm/sec): ICA/CCA RATIO: Right: 1.6 Left: 1.8 ICA: Right: 202 Left: 197 CCA: Right: 123 Left: 111 ECA: Right: 166 Left: 236 VERTEBRAL: Right: 103 antegrade Left: 132 retrograde Elevated flow velocities and ICA/CCA ratios have been found to correlate with increased degrees of vessel stenosis, calculated as percentage of diameter relative to a normal segment of distal ICA/CCA FINDINGS: RIGHT CAROTID: Partially calcified atheromatous plaque involving the proximal ICA. No significant area of luminal na rrowing occurs approximately 1.5 cm cephalad to the origin. A 50-69% stenosis seen utilizing grayscal e analysis. ICA wave form shows spectral broadening. A brisk upstroke and antegrade diastolic flow re robbi. LEFT CAROTID: Calcified plaque is seen scattered throughout the common carotid artery and proximal ICA. The calcifi ed nature limits the grayscale analysis. Spectral broadening observed within the ICA waveform. A bris k upstroke and antegrade diastolic flow remains. VERTEBRAL ARTERIES: There is retrograde flow involving left vertebral artery. Antegrade flow involving the right vertebra l artery. MISCELLANEOUS: None. CONCLUSION: 1. Atherosclerotic plaque generating 50-69% stenoses of the ICAs bilaterally. 2. Retrograde flow involving the left vertebral artery. This would raise concern for possible left kam bclavian artery stenosis or occlusion. Diaz Sanchez Jr., MD on April 17, 2017 at 15:33 Board Certified Radiologist. This report was verified electronically.
[2017-04-17 16:16] LABS: BILIRUBIN, URINE NEG (NEG); BLOOD, URINE NEG (NEG); GLUCOSE,URINE 300 mg/dL (NEG); KETONE, URINE NEG (NEG); MUCUS URINE FEW /lpf (OCC); NITRITE,URINE NEG (NEG); PH, URINE 6.5 (5.0-8.5); SQUAMOUS EPITHELIAL CELL URINE 3 /hpf (0-5); URINE COLOR YELLOW (YELLW/STRAW); URINE LEUKOCYTE ESTERASE NEG (NEG)
[2017-04-17 16:25] LABS: AUTOMATED NEUTROPHIL # 5.3 TH/MM3 (1.8-7.7); BASOPHIL % 0.3 % (0.0-2.0); HEMATOCRIT 36.6 % (35.0-46.0); HEMOGLOBIN 12.8 GM/DL (11.6-15.3); LYMPH % 7.9 % (9.0-44.0); LYMPHOCYTE # 0.5 TH/MM3 (1.0-4.8); MEAN CELL VOLUME 91.8 FL (80.0-100.0); MEAN CORPUSCULAR HGB CONC 34.9 % (32.0-36.0); MEAN PLATELET VOLUME 7.4 FL (7.0-11.0); MONO % 1.8 % (0.0-8.0); MONOCYTE # 0.1 TH/MM3 (0-0.9); PLATELET COUNT 254 TH/MM3 (150-450); RED BLOOD COUNT 3.99 MIL/MM3 (4.00-5.30); RED CELL DISTRIBUTION WIDTH 13.4 % (11.6-17.2); WHITE BLOOD COUNT 5.9 TH/MM3 (4.0-11.0)
[2017-04-17 16:41] LABS: INTERNATIONAL NORMALIZED RATIO 1.1 RATIO; PROTHROMBIN TIME - PATIENT 11.5 SEC (9.8-11.6)
[2017-04-17 16:57] LABS: ALBUMIN 2.9 GM/DL (3.4-5.0); AST (GOT) 16 U/L (15-37); BLOOD UREA NITROGEN 19 MG/DL (7-18); CALCIUM 9.2 MG/DL (8.5-10.1); CHLORIDE 97 MEQ/L (98-107); CREATININE 1.15 MG/DL (0.50-1.00); GLOMERULAR FILTRATION RATE 46 ML/MIN (>89); GLUCOSE,RANDOM 250 MG/DL (74-106); SODIUM (NA) 134 MEQ/L (136-145)
[2017-04-17 16:59] LABS: ALT (GPT) 17 U/L (10-53)
[2017-04-17 17:01] LABS: ALKALINE PHOSPHATASE 109 U/L (45-117); TOTAL BILIRUBIN ADULT 0.7 MG/DL (0.2-1.0); TOTAL PROTEIN 6.9 GM/DL (6.4-8.2)
[2017-04-17 17:52] LABS: HEMOGLOBIN A1C 6.5 % (4.3-6.0)
== END 2017-04-17 15:47 | disposition home or self-care (01) ==
LOC: HCAT 06:54 → HDIC 06:54 → HCAT 15:47
PROVIDERS: ATTEND Internal Medicine Cardiovascular Disease
DX: I05.0 Rheumatic mitral stenosis (principal); I35.0 Nonrheumatic aortic (valve) stenosis; I27.20 Pulmonary hypertension, unspecified; I48.2 Chronic atrial fibrillation; I48.91 Unspecified atrial fibrillation; R06.00 Dyspnea, unspecified; I13.10 Hypertensive heart and chronic kidney disease without heart failure, with stage 1 through stage 4 chronic kidney disease, or unspecified chronic kidney disease; I50.9 Heart failure, unspecified; N18.9 Chronic kidney disease, unspecified; I70.0 Atherosclerosis of aorta; I70.219 Atherosclerosis of native arteries of extremities with intermittent claudication, unspecified extremity; C34.90 Malignant neoplasm of unspecified part of unspecified bronchus or lung; Z87.891 Personal history of nicotine dependence; D13.5 Benign neoplasm of extrahepatic bile ducts; I47.1 Supraventricular tachycardia; I65.29 Occlusion and stenosis of unspecified carotid artery; E03.9 Hypothyroidism, unspecified; M25.562 Pain in left knee; M54.5 Low back pain; E78.5 Hyperlipidemia, unspecified; K21.9 Gastro-esophageal reflux disease without esophagitis; J44.0 Chronic obstructive pulmonary disease with (acute) lower respiratory infection; J20.9 Acute bronchitis, unspecified; K29.70 Gastritis, unspecified, without bleeding; M54.12 Radiculopathy, cervical region; M11.261 Other chondrocalcinosis, right knee; M11.262 Other chondrocalcinosis, left knee; M27.9 Disease of jaws, unspecified; R49.0 Dysphonia; G43.909 Migraine, unspecified, not intractable, without status migrainosus; M25.462 Effusion, left knee; R19.5 Other fecal abnormalities; R79.9 Abnormal finding of blood chemistry, unspecified; M54.6 Pain in thoracic spine; M85.80 Other specified disorders of bone density and structure, unspecified site; R68.89 Other general symptoms and signs; I77.1 Stricture of artery; H18.453 Nodular corneal degeneration, bilateral; Z79.01 Long term (current) use of anticoagulants
CPT/HCPCS: 71250; 80053; 81001; 83036; 85025; 85610; 85730; 86850; 86900; 86901; 87641; 93458; 93880; 99152; 99153; C1769; C1893; J1200; J2250; Q9967

== ENCOUNTER → 2017-05-11 | Outpatient (CLI) | payer MEDICARE ==
[~2017-05-11] MED LIST changes: +CART120C PO; +FLUTI220I INH; -FLUTI44I INH; +FURO40TA PO; +MAGN500T2 PO; -MEDR4PAK3 PO; -OMEP20TA PO; +POTA10CA PO; -PRAV20 PO; +PRAV20TA2 PO; +PRED20 PO; +RANI150T PO; -RANI300T PO; +UBID200C3 PO; -ULTR50TA PO; +VITACAP7 PO
== END ==
LOC: HRSP 11:36
PROVIDERS: ATTEND Internal Medicine Pulmonary Disease
DX: J44.9 Chronic obstructive pulmonary disease, unspecified (principal)
CPT/HCPCS: 94618